=== PATIENT | male | born 2000 | race Caucasian/White ===

== ENCOUNTER 2019-10-02 17:58 | Emergency (ER) | payer OTHER, SELFPAY | END 2019-10-02 18:18 | disposition left against medical advice (07) | LOC: EXPBETH 18:11 | PROVIDERS: Emergency Provider Nurse Practitioner | DX: Z53.21 Procedure and treatment not carried out due to patient leaving prior to being seen by health care provider (principal) | CPT/HCPCS: 99199 ==

== ENCOUNTER 2022-05-21 11:06 | Emergency (ER) | payer OTHER, SELFPAY ==
--- NOTE | ~2022-05-21 | XR_ITS ---
EXAMINATION: XR chest 2V DATE: 05/21/2022 11:30 INDICATION: Chest pain TECHNIQUE: PA and lateral views of the chest are obtained. COMPARISON: None available FINDINGS: The lungs are free of acute opacities. No pleural effusion or pneumothorax. The cardiomedia stinal silhouette is normal. The visualized bones and soft tissues are unremarkable. IMPRESSION: 1. No acute cardiopulmonary abnormality. Reviewed, dictated and finalized at location A.
--- NOTE | 2022-05-21 11:07 | ED.CHESTPAIN ---
HPI - Chest Pain General Chief Complaint: Chest Pain Stated Complaint: ribs and chest pain left side Time Seen by Provider: 05/21/22 11:06 Source: patient Mode of arrival: ambulatory Limitations: no limitations History of Present Illness HPI narrative: Mr. Mclain is a 22-year-old male patient presenting to the clinic today with complaints of left-sided chest pain/rib pain x4 days. He denies any known injury. He denies lifting of any heavy objects or repetitive motions. He does vape. He denies any fever, chills, shortness of breath, or cough. States that he has pain with taking a deep breath-is unable to give me a quality of pain as he says it is all the above when asked if its sharp, dull, aching, burning, or stabbing. Rates pain 8/10 currently. Related Data Home Medications Medication Instructions Recorded Confirmed albuterol 90 mcg/actuation aerosol 90 mcg inhalation Q4H PRN Dyspnea 05/21/22 05/21/22 inhaler cyclobenzaprine 10 mg tablet 10 mg PO BID 05/21/22 05/21/22 fluticasone 250 mcg-salmeterol 50 1 inh inhalation Q12H 05/21/22 05/21/22 mcg/dose blistr powdr for inhalation (Wixela Inhub) lisinopril 10 mg tablet 10 mg PO DAILY 05/21/22 05/21/22 Allergies Allergy/AdvReac Type Severity Reaction Status Date / Time No Known Allergies Allergy Verified 05/21/22 11:20 Review of Systems Review of Systems: Pertinent positives per HPI. Patient denies any fever, chills, rash, headache, visual changes, dizziness, cough, runny nose, sore throat, shortness of breath, chest pain, palpitations, nausea, vomiting, diarrhea, constipation, abdominal pain, or any urinary issues. [facility] Past Medical History Medical History GERD (gastroesophageal reflux disease) IBS (irritable bowel syndrome) Social History Social History Smoking status: Current every day smoker Comments At the time of my signature, I reviewed and agree with the nursing past medical, surgical, social, and family history. There is no relevant family history pertinent to the patient complaint. Exam Narrative: General: Well-developed, well nourished, in no apparent distress Head: Normocephalic, atraumatic. Chest wall: Normal rise and fall of the chest wall with respirations, tenderness to palpation over the left anterior chest and to the lateral lower ribs, no bruising or swelling visualized, pain to the chest wall when lifting arms against resistance. Cardio: Regular rate and rhythm, s1 and s2 normal, no murmur appreciated. Resp: Shallow breathing but clear to auscultation bilaterally, no rhonchi, rales, wheezing or rubs. Extremities: No deformity, no edema, no cyanosis, capillary refill less than 2 seconds, peripheral pulses palpable and strong. Integumentary: Wilderness Rim, warm, and dry, intact without lesion, no rashes. Course Course Emergency Course: Portions of this record may have been created with voice recognition software. Level of Care: Express Care Visit Vital Signs Vital signs: Vital signs reviewed MDM - Chest Pain MDM Narrative Medical decision making narrative: At the time of visit patient is resting comfortably on the exam table. Chest x-ray is negative for any sign of pneumonia, pneumothorax, or bronchitis.. I suspect the patient has costochondritis. Supportive measures were discussed with the patient. I will send in a prescription for some prednisone as he is been taking ibuprofen with minimal relief. He voiced understanding of the discharge instructions and agrees to the treatment plan. Differential Diagnosis Differential diagnosis: Likely pneumothorax, atypical chest pain, costochondritis, chest pain and other (Pleurisy) Imaging Data Attestation: I personally reviewed and interpreted this imaging study as follows: My impression: Negative for pneumonia, bronchitis, or pneumothorax Radiologist's impressi
[2022-05-21 11:11] VITALS: BP 133/82; PULSE 97; RESP 14; TEMP 36.4; O2SAT 100
== END 2022-05-21 11:52 | disposition home or self-care (01) ==
PROVIDERS: Emergency Provider Nurse Practitioner Family; PCP Nurse Practitioner Family
DX: M94.0 Chondrocostal junction syndrome [Tietze] (principal); K21.9 Gastro-esophageal reflux disease without esophagitis; F17.200 Nicotine dependence, unspecified, uncomplicated
CPT/HCPCS: 71046; 99213; G0463

== ENCOUNTER 2023-01-09 15:02 | Emergency (ER) | payer OTHER, SELFPAY ==
[2023-01-09 15:09] VITALS: BP 128/72; PULSE 84; RESP 16; TEMP 37.2; O2SAT 100
[2023-01-09] MEDS: TETANUS,DIPHTHERIA,AC PERTUSSIS ADULT (0.5 ML) BOOSTRIX IM (15:23)
--- NOTE | 2023-01-09 15:59 | ED.ANIMALBIT ---
HPI - Animal Bite General Chief Complaint: Animal Bite Stated Complaint: cat bites on both hands Source: patient Mode of arrival: ambulatory Limitations: no limitations History of Present Illness HPI narrative: Patient presents for evaluation of cat bites and cat scratches to bilateral hands. Incident occurred 2 days ago. His cat and dog got into a fight and he attempted to break it up. His cat bit and scratched him in the process. He noted swelling to his right hand last night, which prompted him to come in today. He is not diabetic. He does use an electronic cigarette. He is right hand dominant. Denies fever, chills, nausea, vomiting or purulence from affected area. Related Data Allergies Allergy/AdvReac Type Severity Reaction Status Date / Time No Known Allergies Allergy Verified 01/09/23 15:33 Review of Systems Review of Systems: CONSTITUTIONAL: Denies fever, chills, or sweats. EYES: Denies visual changes, redness, or discharge. ENT: Denies rhinorrhea, congestion, sore throat, or otalgia. CARDIOVASCULAR: Denies chest pain, palpitations, or edema. RESPIRATORY: Denies cough or dyspnea. GASTROINTESTINAL: Denies abdominal pain, nausea, vomiting, or diarrhea. GENITOURINARY: Denies dysuria or hematuria. SKIN: Reports cat scratch and bite gallardo to bilateral hands MUSCULOSKELETAL: Reports swelling and pain in both hands. NEUROLOGIC: Denies headache, numbness, dizziness, or weakness. PSYCHIATRIC: Denies anxiety or depression. [facility] Past Medical History Medical History (Updated 01/09/23 @ 16:05 by Hany Mcmahan, ASSISTANT DIRECTOR OF SECURITY, ) Cat bite GERD (gastroesophageal reflux disease) IBS (irritable bowel syndrome) Surgical History Surgical History No pertinent past surgical history Family History Family History Mother Family history non-contributory Social History Social History Smoking status: Current every day smoker Tobacco type: e-cigarettes/vaping Substance use: never Gender identity (if verbalized by the patient): Male Spiritual care concerns: No Exam Narrative: GENERAL: Well-appearing, well-nourished, and in no acute distress. HEAD: Normocephalic, atraumatic. EYES: PERRLA and EOMI. ENT: Nares clear, no rhinorrhea or epistaxis. Mucous membranes moist. Oropharynx without tonsillar hypertrophy exudate or other lesions. Bilateral TMs pearly shah nonbulging NECK: Supple. No adenopathy or masses. No carotid bruits or JVD CHEST: Clear to auscultation. No respiratory distress. No wheezes rales or rhonchi HEART: Regular rate and rhythm. No murmur heard. Normal peripheral pulses. ABDOMEN: Soft, nontender, nondistended, normal active bowel sounds. EXTREMITIES: There is soft tissue swelling noted to right hand, most prominent in thenar space. There is tenderness to thenar space of right hand SKIN: Multiple puncture gallardo and linear abrasions to bilateral hands. There is erythema to thenar space of right hand NEURO: No focal deficits. Alert and oriented x3. PSYCH: Normal mood and affect. Course Course Emergency Course: This is a 22 old male who presented for evaluation of pain and swelling in bilateral hands after experiencing cat scratch and bite wounds two days ago. He was updated on his tetanus. Will discharge with azithromycin and Augmentin which he was advised to take as directed. Outline was placed around border of erythema and he was advised to go to the ER if erythema, swelling or pain expands. He was also instructed to go to ER for fever, chills, purulence from affected area. Pt in agreement with plan of care. Level of Care: Express Care Visit Vital Signs Vital signs: Vital Signs Temperature 37.2 C 01/09/23 15:09 Pulse Rate 84 01/09/23 15:09 Respiratory Rate 16 01/09/23 15:09 Blood Pressure 12
== END 2023-01-09 15:45 | disposition home or self-care (01) ==
PROVIDERS: Emergency Provider Nurse Practitioner; PCP Nurse Practitioner Family
DX: S61.432A Puncture wound without foreign body of left hand, initial encounter (principal); S61.431A Puncture wound without foreign body of right hand, initial encounter; W55.01XA Bitten by cat, initial encounter; S60.512A Abrasion of left hand, initial encounter; S60.511A Abrasion of right hand, initial encounter; W55.03XA Scratched by cat, initial encounter; Z23 Encounter for immunization; F17.290 Nicotine dependence, other tobacco product, uncomplicated; K21.9 Gastro-esophageal reflux disease without esophagitis
CPT/HCPCS: 90471; 90715; 99213; G0463

== ENCOUNTER 2025-04-30 18:29 | Emergency (ER) | payer SELFPAY ==
--- NOTE | 2025-04-30 18:32 | ED.DENTAL ---
HPI - Dental/Oral General Chief complaint: Dental/Oral Stated complaint: tooth Time Seen by Provider: 04/30/25 18:32 Source: patient Mode of arrival: ambulatory Limitations: no limitations History of Present Illness HPI Narrative: Fidel is a 25-year-old male patient presenting to the clinic today with complaints of dental pain. He reports over the last week he has had some dental pain to the right upper molar. States that and area of the tooth is broken off 3 months ago. Is having throbbing/burning pain. Is concerned that he may have a root exposed. Has an appointment with the dentist next week. Reports pains 9 at 10 currently. Has been taking ibuprofen for the pain. Related Data Allergies Allergy/AdvReac Type Severity Reaction Status Date / Time No Known Allergies Allergy Verified 04/30/25 18:46 Review of Systems Review of Systems: Pertinent positives per HPI. Patient denies any fever, chills, rash, headache, visual changes, dizziness, cough, runny nose, sore throat, shortness of breath, chest pain, palpitations, nausea, vomiting, diarrhea, constipation, abdominal pain, or any urinary issues. PMFSH Past Medical History Medical History (Updated 04/30/25 @ 18:44 by Jesus Garrett APRN) Cat bite IBS (irritable bowel syndrome) GERD (gastroesophageal reflux disease) Surgical History Surgical History No pertinent past surgical history Family History Family History Mother Family history non-contributory Social History Social History Smoking status: Current every day smoker Tobacco type: e-cigarettes/vaping Substance use: never Gender identity (if verbalized by the patient): Male Spiritual care concerns: No Comments At the time of my signature, I reviewed and agree with the nursing past medical, surgical, social, and family history. There is no relevant family history pertinent to the patient complaint. Exam Narrative: General: Well-developed, well nourished, in no apparent distress Head: Normocephalic, atraumatic Eyes: Pupils equally round and reactive to light bilaterally, EOM intact, sclera and conjunctive clear, no discharge, lids normal Ears: TMs intact and clear, ear canals clear, no drainage, grossly hearing normal. Nose: Nares patent, no discharge, no inflammation, no sinus tenderness. Mouth: Oropharynx without lesions or masses, poor dentition, MMM. Fractured tooth number 3 with mild gingival swelling Neck: Supple, trachea midline, no enlargement of anterior or posterior cervical nodes, no thyroid masses or goiter palpable. Cardio: Regular rate and rhythm, s1 and s2 normal, no murmur appreciated. Resp: Clear to auscultation bilaterally anteriorly and posteriorly, no rhonchi, rales, wheezing or rubs Course Course Emergency Course: Portions of this record may have been created with voice recognition software. Level of Care: Express Care Visit Vital Signs Vital signs: Vital Signs Temperature 37.2 C 04/30/25 18:34 Pulse Rate 84 04/30/25 18:34 Respiratory Rate 16 04/30/25 18:34 Blood Pressure 138/88 04/30/25 18:34 Pulse Oximetry 98 04/30/25 18:34 Oxygen Delivery Room Air 04/30/25 18:34 Temperature 37.2 C 04/30/25 18:34 Pulse Rate 84 04/30/25 18:34 Respiratory Rate 16 04/30/25 18:34 Blood Pressure 138/88 04/30/25 18:34 Pulse Oximetry 98 04/30/25 18:34 Oxygen Delivery Room Air 04/30/25 18:34 Vital signs reviewed MDM - Dental/Oral MDM Narrative Medical decision making narrative: At the time of visit patient is resting comfortably on the exam table. Patient appears to be nontoxic. complaints of dental pain. He reports over the last week he has had some dental pain to the right upper molar. States that and area of the tooth is broken off. Is having throbbing/burning pain. Is concerned that he may have a root exposed. Rates pain 9/10. Has been taking ibuprofen. Has an appointment with the dentist next week. On exam patient has a fracture number 3 with mild gingival swelling. Plan: I suspect patient has dental pain with a fractured tooth. Prescription for amoxicillin and viscous lidocaine was sent to the pharmacy. Recommend using dental putty. Supportive measures were discussed with the patient and they voiced understanding discharge instructions and agrees to treatment plan. Return precautions reviewed Differential Diagnosis Differential diagnosis: Likely gingival abscess, dental caries, toothache, dental abscess, fracture of tooth and aphthous ulcer Discharge Plan Discharge Clinical Impression: Tooth ache Patient Disposition: Home Condition: Stable Instructions: Antibiotic Form, Toothache (ED) Additional Instructions: Take medications as prescribed-amoxicillin and viscous lidocaine May place dental putty in the area to cover any root exposure Increase fluids and stay well hydrated May take Tylenol/Motrin as needed for pain or fever May apply Orajel to the affected area to help alleviate pain May apply warm or cool compress to the affected area to help alleviate pain Follow-up with your dentist as soon as possible Patient Language: Prydeinig Prescriptions: New amoxicillin 875 mg tablet 875 mg PO Q12H 10 Days Qty: 20 0RF lidocaine HCl [Lidocaine Viscous] 2 % solution 1 applic mucous membrane QID PRN (Reason: pain) 7 Days Qty: 100 1RF Follow-up/Referrals: UNKNOWN,DOCTOR [Non-Staff] Time of Disposition: 18:44 Quality NIHSS Nursing Documentation ED NIHSS nursing documentation: reviewed/agree
--- OUTSIDE RECORDS SUMMARY | 2025-04-30 18:32 | XMS_ITS | Clinical Summary ---
Author Organization [facility] Address [address] [place] [address] Care Team Providers Care Canvas Worker Name Role Phone Unavailable Primary Care Provider Unavailabl e Source Comments [facility],non-owned Affiliates and Associated Physician Practices is amultiple site organization consisting of ambulatory clinics and hospital sitesin [place], [place], [place] and [place]. This disclosure is being madepursuant to the Care Everywhere program and may not contain all information available regarding this patient. Last updated 18.[facility] [employer] Social History Tobacco Use Types Packs/Day Years Used Date Smoking Tobacco: Never Assessed Sex and Gender Information Value Date Recorded Sex Assigned at Not on file Legal Sex Male 12:12 PM CDT Gender Identity Not on file Sexual Orientation Not on file Plan of Treatment Health Maintenance Due Date Last Done Comments HIV SCREENING 2013 HEPATITIS C SCREENING 01/12/2016 DTAP/TDAP/TD VACCINES (1 - Tdap) 2017 HEPATITIS B VACCINE (1 of 3 - 19+ 3-dose series) 2017 COVID-19 VACCINE ( - 2023-2 5 season) 2024 DEPRESSION SCREENING 08/29/2024 HPV VACCINE (1 - 3-dose SCDM series) 2025 INFLUENZA VACCINE (#1) 2025 ZOSTER VACCINE (1 of 2) 01/17/2048 HIB VACCINE Aged Out No longer eligi ble based on patient's age to complete this topic MENINGOCOCCAL (Group B) VACC INE SHARED DECISION-MAKING Aged Out No longer eligibl e based on patient's age to complete this topic MENINGOCOCCAL GROUPS A/C/Y/W VACCINE Aged Out No longer eligible b ased on patient's age to complete this topic PNEUMOCOCCAL VACCINE Aged Out No long er eligible based on patient's age to complete this topic Insurance MEDICAID - OUT OF STATE
--- OUTSIDE RECORDS SUMMARY | 2025-04-30 18:32 | XMS_ITS | Clinical Summary ---
Author Organization [facility] Address [address] [place] [address] Care Team Providers Care Administration Internship Name Role Phone Forrest Jay DO Unavailable [phone] Nakita Boyer CHANGE MANAGEMENT SPECIALIST Primary Care Provider [phone] Allergies No known active allergies Medications lisinopriL (PRINIVIL,ZESTRIL) 10 mg tablet Take 10 tablets by mouth daily Active tamsulosin (FLOMAX) 0.4 mg extended release capsule Take 1 capsule (0.4 mg total) by mouth daily for 7 days 7 capsule 1 Active ibuprofen (ADVIL,MOTRIN) 600 mg tablet Take 1 tablet (600 mg total) by mouth every 6 (six) hours as needed for pain for up to 30 doses 30 tablet 1 Active ondansetron ODT (ZOFRAN-ODT) 4 mg disintegrating tablet Take 1 tablet (4 mg total) by mouth every 8 (eight) hours as needed for nausea or vomiting 20 tablet 1 Active albuterol HFA (PROVENTIL HFA,VENTOLIN HFA,PROAIR HFA) 90 mcg/actuation inhaler INHALE 2 PUFFS INTO THE LUNGS EVERY 4 HOURS NEEDED FOR 30 DAYS 2 Active azithromycin (ZITHROMAX) 250 mg tablet TAKE 2 TABLETS BY MOUTH TODAY, THEN TAKE 1 TABLET DAILY FOR 4 DAYS 2 Active benzonatate (TESSALON) 100 mg capsule TAKE 1 CAPSULE BY MOUTH THREE TIMES A DAY NEEDED FOR 30 DAYS 2 Active cephalexin (KEFLEX) 500 mg capsule cephalexin 500 mg capsule TAKE 1 CAPSULE BY MOUTH TWICE A DAY Active dexAMETHasone (DECADRON) 6 mg tablet TAKE 1 TABLET BY MOUTH EVERY DAY FOR 7 DAYS 2 Active famotidine (PEPCID) 20 mg tablet Take 20 mg by mouth 2 (two) times a day 2 Active naproxen (NAPROSYN) 500 mg tablet TAKE 1 TABLET BY MOUTH TWICE A DAY NEEDED (DISCONTINUE MOTRIN) 2 Active cyclobenzaprine (FLEXERIL) 10 mg tablet Take 1 tablet (10 mg total) by mouth 3 (three) times a day as needed for muscle spasms 60 tablet 1 2 Active Active Problems Problem Noted Date Diagnosed Date Kidney stone 12/10/2020 Pain in testicle 11/24/2020 Right flank pain 11/24/2020 Syncope 01/05/2018 Assessment & Plan (01/06/2018 7:34 AM CDT): Recurrent syncopal episodes with broad differential including vasovagal, dehydration due to persistent polyuria and nausea, cardiac dysrhythmias given the history of palpitations, cardiac structural abnormalities etc differential diagnosis will include also seizure disorder given the fact of the postictal state also there is no reported stool or urinary incontinence , no or observed any seizure like activity Will get echocardiogram in a.m. to assess for any cardiac hypertrophy with outflow obstruction. Cardiology consult in a.m. Will continue with telemetry monitoring IV fluid Replete electrolytes as needed Daily BMP and CBC Sinus bradycardia 01/05/2018 Assessment & Plan (01/06/2018 6:23 AM CDT): Patient well developed and physically active. 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 Continue with telemetry monitoring Will check electrolytes, replete as needed Cardiology consult in a.m. Polyuria 01/05/2018 Assessment & Plan (01/06/2018 6:24 AM CDT): Will check urinalysis to rule out UTI Polydipsia 01/05/2018 Assessment & Plan (01/06/2018 6:25 AM CDT): Blood sugars were less than 100. Will check hemoglobin A1c to rule out new onset diabetes. Differential diagnosis in consideration will be primary polydipsia under diabetes insipidus Weight loss, unintentional 01/05/2018 Assessment & Plan (01/06/2018 6:28 AM CDT): Patient reports about 20 lb of unintentional weight loss although states that during that time was working on a jennifer -so not sure if that was related to higher level of physical activity. Labs otherwise are reassuring Physical exam otherwise unremarkable Will continue monitoring for now Elevated BP without diagnosis of hypertension Assessment & Plan (01/06/2018 6:30 AM CDT): Blood pressure was elevated in the emergency department. Patient denies any history of of hypertension. Will monitor for now. Encouraged low-sodium diet Will check for lipid panel Discussed and Encouraged to quit smoking cigarettes and cannabinoids Patient verbalized understanding Immunizations Immunization Administration Dates Next Due Tdap 07/17/2020 Surgical History Surgery Date Site/Laterality Comments APPENDECTOMY Medical History Medical History Date Comments Asthma Hypertension Angina pectoris Back pain Kidney stone ADHD (attention deficit hyperactivity disorder) Depression Migraines Family History Medical History Relation Name Comments Asthma Brother 1 Family history of asthma - (Added by TW Conv) Migraines Brother 2 Family history of migraine headaches - (Added by TW Conv) Asthma Father Family history of asthma - (Added by TW Conv) Asthma Mother Family history of asthma - (Added by TW Conv) Migraines Mother Family history of migraine headaches - (Added by TW Conv) GI problems Other 1 Family history of gastroesophageal reflux disease - (Added by TW Conv) Hypertension Other 1 Migraines Other 2 Family history of migraine headaches - Relation: Grandparent (Added by TW Conv) Stroke Other 3 Family history of cerebrovascular accident (CVA) - Relation: Grandparent (Added by TW Conv) Diabetes Other 4 Family history of diabetes mellitus - Relation: Grandparent (Added by TW Conv) Cholelithiasis Other 5 Family histor y of gallstones - Relation: Grandparent (Added by TW Conv) Asthma Sister Family history of asthma - (Added by TW Conv) Relation Name Status Comments Brother 1 Brother 2 Father Mother Other 1 Other 2 Other 3 Other 4 Other 5 Sister Social History Tobacco Use Types Packs/Day Years Used Date Smoking Tobacco: Every Day Cigarettes 0.3 3 Smokeless Tobacco: Never Tobacco Cessation:Ready to Q uit: No; Counseling Given: No Alcohol Use Standard Drinks/Week Comments No 0 (1 standard drink = 0.6 oz pur e alcohol) Personal Safety Answer Date Recorded Getting School Help Needed Not on file 10/23 Sex and Gender Information Value Date Recorded Sex Assigned at Not on file Legal Sex Male 7:28 PM FREELANCE TRANSLATOR Gender Identity Male 09/21/2020 12:23 PM FREELANCE TRANSLATOR Sexual Orientation Straight 09/21/2020 12 :23 PM FREELANCE TRANSLATOR Obstetrics History Last Filed Vital Signs Vital Sign Reading Time Taken Comments Blood Pressure 133/91 11/04/2021 9:08 AM FREELANCE TRANSLATOR Pulse 83 11/04/2021 9:08 AM FREELANCE TRANSLATOR Temperature 36.8 C (98.2 F) 03/06/2021 1:05 PM CDT Respiratory Rate 22 03/06/2021 1:05 PM CDT Oxygen Saturation 99% 03/06/2021 5:00 PM CDT Inhaled Oxygen Concentration - - Weight 77.6 kg (171 lb 1.6 oz) 11/04/2021 9:08 A M FREELANCE TRANSLATOR Height 180.3 cm (5' 11) 11/04/2021 9:08 AM FREELANCE TRANSLATOR Body Mass Index 23.86 11/04/2021 9:08 AM FREELANCE TRANSLATOR Plan of Treatment Not on file Insurance [id number] [place] [address] [employer] [facility] Advance Directives For more information, please contact: [phone] * Full Code (Latest Code Status on File) Date Activated Date Inactivated Comments 01/05/2018 8:39 PM 01/06/2018 8:29 PM * Full Code Date Activated Date Inactivated Comments 01/05/2018 4:50 PM 01/05/2018 8:39 PM Care Teams Administration Internship Relationship Specialty Start Date End Date Nakita Boyer NP [address] [place] [address] PCP - General Nurse Practitioner 09/22/21 Forrest Jay DO Consulting Physician Cardiology 01/06/18
[2025-04-30 18:34] VITALS: BP 138/88; PULSE 84; RESP 16; TEMP 37.2; O2SAT 98
== END 2025-04-30 18:45 | disposition home or self-care (01) ==
PROVIDERS: Emergency Provider Nurse Practitioner Family
DX: K08.89 Other specified disorders of teeth and supporting structures (principal); F17.290 Nicotine dependence, other tobacco product, uncomplicated; K21.9 Gastro-esophageal reflux disease without esophagitis
CPT/HCPCS: 99213; G0463